=== PATIENT | female | born 1945 | race Caucasian/White ===

== ENCOUNTER → 2023-05-25 07:38 | Outpatient (REF) | payer MEDICARE, BC, SELFPAY | LOC: RAD 07:38 | PROVIDERS: ATTENDING PHYSICIAN Student in an Organized Health Care Education/Training Program | DX: Z87.891 Personal history of nicotine dependence (principal) | CPT/HCPCS: 71271 ==

== ENCOUNTER → 2023-06-12 08:33 | Outpatient (REF) | payer MEDICARE, BC, SELFPAY ==
[2023-06-12 09:35] LABS: % Basophils 1.3 % (0-2); % Eosinophils 1.6 % (0-6); % Immature Granulocytes 0.3 % (0-0.5); % Lymphocytes 41.5 % (20.5-51.1); % Monocytes 11.2 % (1.7-9.3); % Neutrophils 44.1 % (42.2-75.2); Absolute Basophils 0.1 10^3/uL (0-0.2); Absolute Eosinophils 0.1 10^3/uL (0-0.7); Absolute Lymphocytes 3.3 10^3/uL (1.2-3.4); Absolute Monocytes 0.9 10^3/uL (0.1-0.6); Absolute Neutrophils 3.5 10^3/uL (1.4-6.5); Hematocrit 46.5 % (37.0-47.0); Hemoglobin 15.8 g/dL (12.0-16.0); Mean Corpuscular Hgb 29.2 pg (27.0-31.0); Mean Platelet Volume 10.6 fL (7.4-10.4); Nucleated Red Blood Cells % 0 %; Platelet Count 241 10^3/uL (130-400); Red Blood Cell Count 5.41 10^6/uL (4.20-5.40); Red Cell Dist. Width 13.7 % (11.5-14.5); White Blood Cell Count 7.9 10^3/uL (4.8-10.8)
[2023-06-12 09:58] LABS: Urine Albumin Trace (Neg - Trace); Urine Bilirubin Negative (Negative); Urine Character Clear (Clear); Urine Color Yellow; Urine Glucose Negative (Negative); Urine Ketone Negative (Negative); Urine Leukocyte Trace (Negative); Urine Nitrite Negative (Negative); Urine Occult Blood Trace (Negative); Urine Specific Gravity 1.015 (<1.030); Urine Urobilinogen Negative (Neg - 1+)
[2023-06-12 10:00] LABS: ALT (SGPT) 23 U/L (0-35); AST (SGOT) 26 U/L (14-36); Albumin 4.4 g/dl (3.5-5.0); Alkaline Phosphatase 71 U/L (38-126); Blood Urea Nitrogen 18 mg/dl (7-17); Calcium 9.3 mg/dl (8.4-10.2); Carbon Dioxide 25 mmol/L (22-30); Chloride 106 mmol/L (98-107); Glucose 101 mg/dl (70-99); HDL Cholesterol 58 mg/dl; LDL Cholesterol, Calculated 61 mg/dl; Potassium 4.3 mmol/L (3.5-5.1); Sodium 141 mmol/L (135-145); Total Bilirubin 0.6 mg/dl (0.2-1.3); Total Cholesterol 150 mg/dl (50-199); Total Protein 6.9 g/dl (6.3-8.2); Triglyceride 156 mg/dl (10-149); Very Low Density Lipoprotein 31 mg/dl (0-30); eGFR > 60.00
[2023-06-12 10:43] LABS: Vitamin D, 25-OH*** 77.1 ng/mL (30-80)
[2023-06-12 11:28] LABS: Glycohemoglobin (HgbA1c) 5.9 % (4.0-5.6)
[2023-06-12 11:46] LABS: Urine Amorphous Seen; Urine Mucus Few
[2023-06-12 11:47] LABS: Urine Red Blood Cell 0-2 /HPF (0-2); Urine White Cell 0-2 /HPF (0-5)
[2023-06-12 11:48] LABS: Urine Bacteria Few (Negative)
== END ==
LOC: REG 08:33
PROVIDERS: ATTENDING PHYSICIAN Student in an Organized Health Care Education/Training Program
DX: Z00.00 Encounter for general adult medical examination without abnormal findings (principal); M81.0 Age-related osteoporosis without current pathological fracture; I70.90 Unspecified atherosclerosis; E66.3 Overweight; Z79.899 Other long term (current) drug therapy
CPT/HCPCS: 36415; 80053; 80061; 81003; 81015; 82306; 83036; 84443; 85025

== ENCOUNTER → 2023-06-19 18:48 | Outpatient (REF) | payer MEDICARE, BC, SELFPAY ==
[2023-06-20 07:42] LABS: Urine Albumin Negative (Neg - Trace); Urine Bilirubin Negative (Negative); Urine Character Very Cloudy (Clear); Urine Color Yellow; Urine Glucose Negative (Negative); Urine Ketone Negative (Negative); Urine Leukocyte Trace (Negative); Urine Nitrite Negative (Negative); Urine Occult Blood Negative (Negative); Urine Urobilinogen Negative (Neg - 1+)
[2023-06-20 07:58] LABS: Urine Amorphous Seen; Urine Bacteria Few (Negative); Urine Red Blood Cell None Seen /HPF (0-2); Urine White Cell 0-2 /HPF (0-5)
== END ==
LOC: CLAB 18:48
PROVIDERS: ATTENDING PHYSICIAN Student in an Organized Health Care Education/Training Program
DX: R30.0 Dysuria (principal)
CPT/HCPCS: 81003; 81015; 87086

== ENCOUNTER → 2024-06-10 08:47 | Outpatient (REF) | payer MEDICARE, BC, SELFPAY ==
[2024-06-10 09:45] LABS: % Basophils 1.3 % (0-2); % Eosinophils 1.7 % (0-6); % Immature Granulocytes 0.7 % (0-0.5); % Lymphocytes 35.2 % (20.5-51.1); % Monocytes 10.6 % (1.7-9.3); % Neutrophils 50.5 % (42.2-75.2); Absolute Basophils 0.1 10^3/uL (0-0.2); Absolute Eosinophils 0.1 10^3/uL (0-0.7); Absolute Lymphocytes 2.1 10^3/uL (1.2-3.4); Absolute Monocytes 0.6 10^3/uL (0.1-0.6); Absolute Neutrophils 3.1 10^3/uL (1.4-6.5); Hematocrit 44.9 % (37.0-47.0); Hemoglobin 15.3 g/dL (12.0-16.0); Mean Corp Hgb Conc. 34.1 g/dL (33.0-37.0); Mean Corpuscular Hgb 29.7 pg (27.0-31.0); Mean Corpuscular Volume 87.2 fL (81.0-99.0); Mean Platelet Volume 10.3 fL (7.4-10.4); Nucleated Red Blood Cells % 0 %; Platelet Count 190 10^3/uL (130-400); Red Blood Cell Count 5.15 10^6/uL (4.20-5.40); Red Cell Dist. Width 13.5 % (11.5-14.5)
[2024-06-10 10:26] LABS: Urine Albumin 1+ (Neg - Trace); Urine Bilirubin Negative (Negative); Urine Character Clear (Clear); Urine Color Yellow; Urine Glucose Negative (Negative); Urine Ketone Negative (Negative); Urine Leukocyte Negative (Negative); Urine Nitrite Negative (Negative); Urine Occult Blood 1+ (Negative); Urine Specific Gravity 1.025 (<1.030); Urine Urobilinogen Negative (Neg - 1+)
[2024-06-10 10:39] LABS: Urine Bacteria Few (Negative); Urine Red Blood Cell 0-2 /HPF (0-2); Urine Squamous Cell 0-2 /LPF (Few); Urine White Cell 0-2 /HPF (0-5)
[2024-06-10 10:50] LABS: Vitamin D, 25-OH*** 41.1 ng/mL (30-80)
[2024-06-10 11:03] LABS: TSH Reflex To Free T4 0.26 uIU/ml (0.47-4.68)
[2024-06-10 11:16] LABS: Glycohemoglobin (HgbA1c) 5.7 % (4.0-5.6)
[2024-06-10 11:33] LABS: Free T4 1.09 ng/dl (0.78-2.19)
[2024-06-10 11:38] LABS: ALT (SGPT) 29 U/L (0-35); AST (SGOT) 28 U/L (14-36); Albumin 4.7 g/dl (3.5-5.0); Alkaline Phosphatase 69 U/L (38-126); Blood Urea Nitrogen 22 mg/dl (7-17); Calcium 9.4 mg/dl (8.4-10.2); Carbon Dioxide 26 mmol/L (22-30); Chloride 108 mmol/L (98-107); Glucose 93 mg/dl (70-99); HDL Cholesterol 57 mg/dl; LDL Cholesterol, Calculated 86 mg/dl; Potassium 4.9 mmol/L (3.5-5.1); Sodium 142 mmol/L (135-145); Total Bilirubin 0.8 mg/dl (0.2-1.3); Total Cholesterol 170 mg/dl (50-199); Triglyceride 136 mg/dl (10-149); Very Low Density Lipoprotein 27 mg/dl (0-30); eGFR > 60.00
== END ==
LOC: REG 08:47
PROVIDERS: ATTENDING PHYSICIAN Nurse Practitioner Family
DX: E55.9 Vitamin D deficiency, unspecified (principal); Z13.220 Encounter for screening for lipoid disorders; Z13.0 Encounter for screening for diseases of the blood and blood-forming organs and certain disorders involving the immune mechanism; R73.03 Prediabetes; Z13.89 Encounter for screening for other disorder; Z79.899 Other long term (current) drug therapy; H53.2 Diplopia
CPT/HCPCS: 36415; 80053; 80061; 81003; 81015; 82306; 83036; 84439; 84443; 85025

== ENCOUNTER 2024-10-06 04:11 | Inpatient (IN) | payer MEDICARE, BC, SELFPAY ==
[2024-10-05 21:30] VITALS: BP 122/98
[2024-10-05 22:01] LABS: Hematocrit 49.7 % (37.0-47.0); Hemoglobin 17.0 g/dL (12.0-16.0); Mean Corp Hgb Conc. 34.2 g/dL (33.0-37.0); Mean Corpuscular Volume 86.7 fL (81.0-99.0); Nucleated Red Blood Cells % 0 %; Platelet Count 168 10^3/uL (130-400); Red Cell Dist. Width 13.5 % (11.5-14.5)
[2024-10-05 22:20] LABS: ALT (SGPT) 33 U/L (0-35); AST (SGOT) 38 U/L (14-36); Albumin 4.4 g/dl (3.5-5.0); Alkaline Phosphatase 65 U/L (38-126); Blood Urea Nitrogen 19 mg/dl (7-17); Calcium 9.0 mg/dl (8.4-10.2); Carbon Dioxide 20 mmol/L (22-30); Chloride 103 mmol/L (98-107); Glucose 195 mg/dl (70-99); Lipase 178 U/L (23-300); Potassium 4.0 mmol/L (3.5-5.1); Sodium 133 mmol/L (135-145); Total Protein 7.0 g/dl (6.3-8.2); eGFR 52.08
[2024-10-05 22:25] LABS: COVID-19 Antigen Negative (Negative)
[2024-10-06] VITALS (17 sets, daily range): BP systolic 96–136; BP diastolic 50–101; PULSE 88–118; BMI 30.9; BMI 31.5
--- NOTE | 2024-10-06 00:21 | EDRN ---
Pt has not eaten for two days which is unusual for her. Temp today was 101.9 which scared pt. Pt with body aches. Pt has been sleeping for two days. Dry heaves. Occasional nausea followed by dry heave then nausea stops. Pt with intermittent
discomfort L chest x 2 days, is in afib intermittently. Pt has had chills. No sob, abd pain, cough, urinary symptoms. Pt developed diarrhea tonight. No ill contacts. Pt was camping last weekend and says she was bit by a lot of mosquitos. Pt
took tylenol 1000mg at 1700
[2024-10-06] MEDS: NSS 1000 IV ×4 (00:35→16:27)
[2024-10-06 01:12] LABS: Troponin I 0.025 ng/ml
[2024-10-06 02:04] LABS: Urine Character Slightly Cloudy (Clear)
[2024-10-06] MEDS: NSS 500 IV (02:41)
[2024-10-06] MEDS: ZOSYN 50 IV (02:41)
[2024-10-06 02:52] LABS: Urine White Cell None Seen /HPF (0-5)
--- NOTE | 2024-10-06 03:06 | ED.GENMED ---
History of Present Illness
General
Chief Complaint: Abdominal Symptoms
Source: patient
Exam Limitations: none
Time Seen by Provider: 10/05/24 23:48
Nursing documentation reviewed up to this point in time: agreed with
History of Present Illness
History of Present Illness:
78-year-old female with history as noted presents to the ER for febrile illness. Patient reports that she has been feeling unwell for the past 48 hours. She states she has had a fever with a Tmax of 102 �F. She says that she has had decreased
appetite. She says that she has had nausea with vomiting/dry heaving. She had some loose stools today nonbloody. She denies any significant abdominal pain. She denies any cough or shortness of breath. Denies chest pain. She says that when she
has a high fever she does have a mild headache but no headache at present. She denies any dysuria, hematuria, change in frequency. She denies any URI symptoms. Denies any other acute complaints.
Past History
Past History
ED Past Medical History: Arrthythmia and Hypercholesterolemia
ED Past Surgical History: Gynecological
Social History
Tobacco: Non-smoker
Alcohol: None
Review of Systems
Review of Systems
All Other Systems: ROS reviewed and negative except as documented in HPI and ROS
Constitutional: Reports fever, fatigue and chills
EENT: Denies sore throat or runny nose
Respiratory: Denies cough or trouble breathing
Cardiac: Denies chest pain or palpitations
ABD/GI: Reports nausea, vomiting and diarrhea; Denies abdominal pain or bloody stools
: Denies dysuria, frequency or flank pain
Musculoskeletal: Denies neck pain or back pain
Neurological: Reports headache; Denies dizzy
Phy Exam
Physical Exam
Physical Exam:
General: Awake, alert, oriented x3; no acute distress
Head: Normocephalic, atraumatic
Eyes: Conjunctiva normal, sclera anicteric
Throat: Airway intact, handling secretions
Neck: Trachea midline, supple without meningismus
Lungs: Clear to auscultation bilaterally, no wheezing, rales, rhonchi
Heart: Tachycardia with irregularly irregular rhythm, no murmurs, gallops, or rubs
Abd: Soft, non distended, tender to palpation in the epigastrium
Back: No CVA tenderness
Neuro: No gross deficits
Skin: no rash
Extremities: Warm and well-perfused
Scores
Heart Failure Risk
Heart Failure Risk Score: Not Applicable
Heart Score for Chest Pain Patients
STEMI patient?: Not applicable
Withdrawal Assessment of Alcohol
Withdrawal Assessment Completed?: Not applicable
Sepsis
Sepsis Screening
Sepsis Assessment: Sepsis
Sepsis Screening: Lactate >2mmol/L and Hypotension
Sepsis Screen
Sepsis Screen: Sepsis
Date: 10/06/24
Time: 02:37
Course
Orders/Labs/Results
Orders:
Orders
10/05/24 21:47
COVID-19 Antigen Urgent
Source: Nasal Swab
Complete Blood Count/With Diff Urgent
Comprehensive Metabolic Panel Urgent
Lactic Acid Q4H
Comment: ON ICE, CANCEL 2ND ORDER IF FIRST LACTIC ACID LEVEL <2
Lipase Urgent
Influenza A+B Rapid Molecular Urgent
LISE Source: Nasal Swab
Specimen Description:
10/05/24 23:49
0.9% Sodium Chloride 1000 ml [Nss] 1,000 ml IV BOLUS
10/06/24 00:04
CT Abd/pelvis W Iv Cont Urgent
Reason For Exam: abd pain, N/V/D
10/06/24 00:34
Troponin I Urgent
10/06/24 00:45
EKG [Electrocardiogram (*1)] Urgent
Reason for Study: Chest Pain
EKG- Treatment ONCE
10/06/24 01:51
Lactic Acid Q4H
Comment: ON ICE, CANCEL 2ND ORDER IF FIRST LACTIC ACID LEVEL <2
10/06/24 01:55
Urinalysis Reflex To Culture Urgent
Date Specimen was Collected: 10/06/24
Time Specimen was Collected: 01:53
Urine Microscopic Reflex Cult Urgent
10/06/24 02:32
0.9% Sodium Chloride 1000 ml [Nss] 1,000 ml IV BOLUS
10/06/24 02:36
US Abdomen Complete/Upper Urgent
Comment:
Reason For Exam: upper abd tenderness, N/V
10/06/24 02:37
0.9% Sodium Chloride 500 ml [Nss] 500 ml IV BOLUS
Piperacillin/Tazo 3.375 Gram [Zosyn] 3.375 gram in 50 ml IV NOW
10/06/24 02:45
Blood Culture Q30M
LISE Source: Blood/Venous
Specimen Description:
10/06/24 03:15
Blood Culture Q30M
LISE Source: Blood/Venous
Specimen Description:
Abnormal Lab Results
10/05/24 10/06/24 10/06/24
21:47 01:51 01:55
RBC 5.73 H 10^6/uL
(4.20-5.40)
Hgb 17.0 H g/dL
(12.0-16.0)
Hct 49.7 H %
(37.0-47.0)
MPV 10.6 H fL
(7.4-10.4)
Absolute Lymphs (auto) 0.5 L 10^3/uL
(1.2-3.4)
Immature Gran % 0.6 H %
(0-0.5)
Neutrophils % 83.9 H %
(42.2-75.2)
Lymphocytes % 9.3 L %
(20.5-51.1)
Sodium 133 L mmol/L
(135-145)
Carbon Dioxide 20 L mmol/L
(22-30)
BUN 19 H mg/dl
(7-17)
Creatinine 1.1 H mg/dL
(0.6-1.0)
Glucose 195 H mg/dl
(70-99)
Lactic Acid 3.2 H mmol/L 2.5 H mmol/L
(0.7-2.0) (0.7-2.0)
AST 38 H U/L
(14-36)
Ur Occult Blood Reflex 3+ A
(Negative)
Urine RBC 7-10 A /HPF
(0-2)
Urine Bacteria (Reflex) Few A
(Negative)
Urine Albumin (Reflex) 2+ A
(Neg - Trace)
10/05/24 21:47
10/05/24 21:47
Vital Signs
Initial and Last Documented VS:
Initial Vital Signs
Temp Pulse Resp BP Pulse Ox
36.8 C 79 20 122/98 96
10/05/24 21:30 10/05/24 21:30 10/05/24 21:30 10/05/24 21:30 10/05/24 21:30
Last Documented Vital Signs
Temp Pulse Resp BP Pulse Ox
36.8 C 111 16 100/60 96
10/06/24 00:39 10/06/24 03:00 10/06/24 02:00 10/06/24 03:00 10/05/24 21:30
MDM/Problems Addressed
Differential Diagnosis Includes:
Viral syndrome, UTI, enteritis/gastroenteritis, cholecystitis, pancreatitis
MDM/Problems Addressed:
78-year-old female presents for evaluation of febrile illness associate with nausea/vomitings, some loose stools today. Vitals were significant for tachycardia and mild hypotension. Physical exam as above notable for upper abdominal tenderness.
Labs were sent off including a CBC which showed no leukocytosis but predominant neutrophils. CMP shows mild MINESH with a creatinine of 1.5. Marginal nongap metabolic acidosis from GI losses. Initial lactate elevated 3.2. Blood cultures sent off.
Bilirubin normal, AST marginally elevated but ALT normal. Lipase normal. Troponin negative. Urinalysis no infection appears contaminated. CT of the abdomen pelvis did show distended gallbladder but no other acute abnormalities. Viral swabs were
negative. Given her tenderness and nausea/vomiting cholecystitis is a consideration and with elevated lactate would err towards covering with antibiotics. Will send for upper abdominal ultrasound to better evaluate gallbladder. Will continue with
fluid resuscitation�30 cc/kg fluids ordered. She is tachycardic and EKG notes that she is in A-fib with RVR. I suspect that tachycardia is mostly being driven by hypovolemia and she does have mild hypotension�will hold off on rate control meds
pending better fluid resuscitation to avoid exacerbating hypotension. Will admit to the hospitalist for continued management. Discussed case with hospitalist.
Chronic conditions affecting care:
A-fib with RVR
Acute Exacerbation and/or Progression of Chronic Illness:
Acute exacerbation of chronic A-fib managed as above
*Radiology
Radiology exam reviewed: radiology read reviewed
*Pulse Oximetry
SaO2: 96
Oxygen Mode of Delivery: Room air
Patient hypoxic: no (96%)
*EKG
Interpreted by ED Provider?: Yes
Heart Rate: 116
Rate: tachycardiac
Rhythm: a-fib
[place]: normal axis
Interval: normal interval
QRS Pattern: normal QRS
Ischemia: non-specific ST changes
*Critical Care Note
Total Time (30-74mins, 75-104mins- exclusive of procedures): Not Applicable
Data Reviewed
Source: patient and records
Prescriptions/Medications Considered But Not Given:
Considered giving metoprolol/diltiazem
Patient Management
Discussion with other providers: Hospitalist (Discussed with hospitalist)
Escalation/DeEscalation of care consider admission/obs:
Admission indicated
ED Attending Note
-
Portions of this chart may have been created with voice recognition software.� Occasional wrong word or��sound alike� substitutions may have occurred due to the inherent limitations of voice recognition software.
Discharge Plan
Departure
Patient Disposition: Admit
Date of Disposition: 10/06/24
Time of Disposition: 03:04
Admit to doctor: Simba
Presentation/result/management discussed w/ accepting MD/DO: Hospitalist
Discharge Problem:
Fever, Hypovolemia, Atrial fibrillation with RVR
Prescriptions:
No Action
metoprolol succinate 25 mg tablet extended release 24 hr
25 mg PO HS
metoprolol succinate 25 mg tablet extended release 24 hr
12.5 mg PO DAILY
Hair,Skin and Nails Tablet
1 tab PO DAILY
coenzyme Q10 [Co Q-10] 100 mg Capsule
100 mg PO HS
rosuvastatin 10 mg tablet
10 mg PO HS
cinnamon bark [Cinnamon] 500 mg Capsule
1,000 mg PO BID
Xarelto 20 mg tablet
20 mg PO HS
PreserVision AREDS-2 250-90-40-1 mg Capsule
1 tab PO BID
Joint Health 40-10-5-3.3 mg Tablet
1 tab PO DAILY
Probiotic
1 tab PO DAILY
omeprazole 20 mg capsule,delayed release(DR/EC)
20 mg PO HS
ibandronate 150 mg tablet
150 mg PO MONTHLY
Neuriva Original 100-100 mg Capsule
1 cap PO DAILY
Referrals:
Mercedez Olson CRNP [Family Provider, Family Practice]
Interventions
Interventions:
*Risk Screen - Suicide Last Done: 10/05/24 21:30
*General Assessment Last Done: 10/05/24 21:30
*Neglect/Abuse Screening Last Done: 10/05/24 21:30
*ED- Fall Risk Assessment Last Done: 10/06/24 00:39
SF-Idlrej-Vryykimeqi Assessment Last Done: 10/06/24 00:46
Discharge Date and Time
Print Language: YI
--- NOTE | 2024-10-06 03:34 | HPS.HSE ---
Family Physician
-
Family Physician: HAWA Francois
Chief Complaint
-
Fever
History of Present Illness
This is a 78-year-old female with past medical history significant for proximal atrial fibrillation on anticoagulant with Xarelto, hypertension, hyperlipidemia presenting to the emergency department with 2 days of feeling unwell and a febrile
episode today.
She reported that she started feeling unwell about 48 hours ago. Patient stated that her symptoms initially started with rhinorrhea and nasal congestion. She had a headache. She then developed fatigue chills. The following day she slept most of
the day until she had a temp of over 101 at home. She had more chills. She had no appetite and had not had any significant p.o. in the last 48 hours. She then reported that she got up and then had profuse amount of watery diarrhea. She denied
having any abdominal pain. She denies any vomiting. She had no nausea. She denies having any cough shortness of breath pleuritic chest pain or otherwise. She denies any sore throat or sinus congestion. She denies any headache. She denies any
urinary symptoms such as flank pain dysuria frequency or urgency. She denies any rash denies any recent travels or sick contacts.
She took Tylenol before coming to the emergency department.
Send on arrival in the emergency department patient was afebrile with a temp of 98.3, blood pressure was 96/50 and she was tachycardic to 110s. She was satting 96% on room air.
She had hemoglobin of 17, normal WBCs and normal platelets. Lactic acid was elevated at 3.2. Electrolytes were normal except for sodium of 133. BUN/creatinine were stable at 19 and 1.1. LFTs were normal, lipase normal. Urine urinalysis was
unremarkable. COVID and flu test were negative.
She had a CT of the abdomen pelvis with capsular distention but without any other acute findings and specifically no diverticulitis, biliary abnormalities. AAA ultrasound of the abdomen is negative with normal gallbladder, no sludge or gallstones
and negative Larkin sign's without any biliary ductal dilation.
Medical History
Past Medical History
Past Medical History: Reports Other
Additional Past Medical History:
AAA
Hypertension
Paroxysmal Atrial Fibrillation
Dyslipidemia
Osteopenia
Past Surgical History: Reports Other
Additional Past Surgical History:
Left Forearm ORIF
T&A
Appendectomy
BSO
Sebaceous Cyst Excision
Social History
Tobacco: Former Smoker (Quit smoking in 2014. Approx 50 pack years total use.)
Alcohol: None
Drug: None
Family History
Family History: Other (Mother: Longevity, A-Fib Maternal Aunt: DM)
Allergies / Home Medications
Allergies reflects when Allergies were last updated in [facility].
Home Medications with original date entered in [facility]
Allergy/Medication List:
Allergies
Allergy/AdvReac Type Severity Reaction Status Date / Time
codeine Allergy Nausea / Verified 12/27/22 15:32
Vomiting
meperidine [From Demerol] Allergy Nausea / Verified 12/27/22 15:32
Vomiting
Home Medications
Neureua 1 tab PO DAILY 12/27/22
Probiotic 1 tab PO DAILY 12/27/22
cartilage 40 mg-collagen II 10 mg-boron 5 mg-hyaluronate 3.3 mg tablet (A [place] [place]) 1 tab PO DAILY 12/27/22
cinnamon bark 500 mg capsule (Cinnamon) 1,000 mg PO BID 12/27/22
coenzyme Q10 100 mg capsule (Co Q-10) 100 mg PO HS 12/27/22
ibandronate 150 mg tablet 150 mg PO MONTHLY 12/27/22
metoprolol succinate 25 mg tablet,extended release 24 hr 12.5 mg PO QPM PRN if pulse above 56 12/27/22
metoprolol succinate 25 mg tablet,extended release 24 hr 25 mg PO DAILY 12/27/22
multivitamin with minerals (Hair,Skin and Nails tablet) 1 tab PO BID 12/27/22
omeprazole 20 mg capsule,delayed release 20 mg PO HS 12/27/22
rivaroxaban 20 mg tablet (Xarelto) 20 mg PO HS 12/27/22
rosuvastatin 10 mg tablet 10 mg PO HS 12/27/22
vit C 250 mg-vit E 90 mg-zinc 40 mg-copper 1 [id number] capsule (PreserVision AREDS-2) 1 tab PO BID 12/27/22
Review of Systems
-
History Source: Patient
A 12 point ROS was completed and negative except as noted: Yes
Constitutional: Reports Fever; Denies Chills
EENT: Denies Sore Throat
Respiratory: Denies Cough or Trouble Breathing
Cardiac: Denies Chest Pain or Palpitations
Abdomen/GI: Reports Diarrhea; Denies Abdominal Pain, Nausea or Vomiting
: Denies Dysuria or Flank Pain
Musculoskeletal: Denies Joint Pain
Skin: Denies Rash
Neurological: Denies Dizzy, Headache, Weakness or Numbness
Psych: Denies Depression or Anxiety
Physical Exam
Vital Signs
Vital Signs
Temp Pulse Resp BP Pulse Ox
98.3 F 111 16 100/60 96
10/06/24 00:39 10/06/24 03:00 10/06/24 02:00 10/06/24 03:00 10/06/24 03:14
Physical Exam
General: Other (77y F in no acute distress)
HEENT: Moist mucous membranes and Other (Patient not capable of moving L orb laterally beyond midline.)
Respiratory: Clear; No Wheezes, Rales or Rhonchi
Cardiac: S1/S2 and Regular Rhythm; No Murmur
GI: Soft, Non Tender, Non Distended and Normal Bowel Sounds
Musculoskeletal: No Clubbing, No Cyanosis and No Edema
Neuro: AO x 3 and Nonfocal/grossly intact
Psych: Calm
Laboratory Results
-
10/05/24 21:47
10/05/24 21:47
Laboratory Results
Lactic Acid 2.5 mmol/L (0.7-2.0) H 10/06/24 01:51
Total Bilirubin 0.8 mg/dl (0.2-1.3) 10/05/24 21:47
AST 38 U/L (14-36) H 10/05/24 21:47
ALT 33 U/L (0-35) 10/05/24 21:47
Alkaline Phosphatase 65 U/L (38-126) 10/05/24 21:47
Troponin I 0.025 ng/ml 10/06/24 00:34
Lipase 178 U/L (23-300) 10/05/24 21:47
Data Reviewed
-
CT Scan: Report Reviewed by me
Ultrasound: Report Reviewed by me
Lab Data: Labs Reviewed by me
Old Records: Reviewed
Impression/Plan
-
IMPRESSION:
78-year-old female with proximal atrial fibrillation coming into the emergency department with febrile episode and some sinus symptoms that started about 48 hours ago. She had no other respiratory symptoms. She has no rash. She has no focal
localizing symptoms. She did have 1 episode of diarrhea prior to coming into the emergency department but has not had further diarrhea since. Tmax of 102 at home. Afebrile here and without leukocytosis. Suspect this is a upper respiratory
infection or possibly sinusitis or viral URI accompanied by fever and tachycardia. Patient does have elevated lactic acid which improved with initial crystalloid resuscitation in the ED. She had imaging with CT of the abdomen pelvis which was
negative for diverticulitis and the CT and ultrasound were negative for acute cholecystitis, appendicitis or any other peritonitis. No focal abnormalities on the examination. COVID and flu test are negative.
PLAN:
Fever -source not entirely clear was symptoms consistent with sinusitis, cannot rule out developing viral gastroenteritis. She has tachycardia and elevated lactic acid meeting criteria for sepsis.
-Admit to telemetry
-Blood cultures
-Will continue with IV antibiotics (Unasyn)
-Saline nasal spray
-Continue IV fluids overnight
-Advance diet as tolerated
Atrial fibrillation -RVR at 116 likely secondary to fever and hypovolemia
-IV fluids as above
-Continue home Xarelto
-Restart metoprolol in the a.m. with hold parameters
DVT prophylaxis�on Xarelto
CODE STATUS�full code
[2024-10-06 06:36] LABS: Hematocrit 44.3 % (37.0-47.0); Hemoglobin 15.0 g/dL (12.0-16.0); Mean Corp Hgb Conc. 33.9 g/dL (33.0-37.0); Mean Corpuscular Volume 86.5 fL (81.0-99.0); Platelet Count 123 10^3/uL (130-400); Red Cell Dist. Width 13.7 % (11.5-14.5)
[2024-10-06 06:37] LABS: Blood Urea Nitrogen 19 mg/dl (7-17); Calcium 7.8 mg/dl (8.4-10.2); Carbon Dioxide 23 mmol/L (22-30); Chloride 107 mmol/L (98-107); Estimated Creatinine Clearance 53 ml/min; Glucose 136 mg/dl (70-99); Potassium 4.1 mmol/L (3.5-5.1); Sodium 135 mmol/L (135-145); eGFR > 60.00
[2024-10-06] MEDS: TYLENOL 650 MG PO ×3 (08:14→20:11)
[2024-10-06] MEDS: TOPROL XL 12.5 MG PO (09:22)
[2024-10-06] MEDS: UNASYN IV ×2 (09:22→14:01)
--- NOTE | 2024-10-06 10:00 | W.PN.UPDATE ---
Update Note
Progress Note Update
Patient seen and examined after postmidnight admission. Currently without new complaints. Denies chest pain, shortness of breath, abdominal pain. Vital signs stable. No acute distress, awake alert and oriented. Tachycardic, irregularly
irregular rhythm, normal S1-S2. Clear to auscultation bilaterally. Positive bowel sounds, soft, nontender, nondistended. Since admission, Abd U/S read as unremarkable abdominal ultrasound. CT A/P read pending. Continue IV ampicillin for sepsis due
to sinusitis. Consult infectious disease. Continue IV fluids.
--- NOTE | 2024-10-06 10:45 | CM ---
CM met with pt bedside
Pt resides with her son and his fiance in a [place] with [address]
Pt is indep with her ADLs, drives+
Denies use of DMEs
Pt has Rx coverage through her supplement policy, [employer]
PCP- Mercedez Olson
Rx- [facility]
Son/Ori is financial POA
Granddtr/Hemal is medical POA- admissions notified to add as secondary contact ([phone])
Discharge Disposition- anticipate home no needs
--- NOTE | 2024-10-06 15:05 | CON.ID ---
Consultation
-
Date/Time Consultation Requested: 10/06/2024 0919
Date/Time Consultation Performed: 10/06/2024 1500
Requesting Provider: Dr. Lozano
Performing Provider: Dr. Smiley
Reason for Consultation: Fever
Chief Complaint / Past History
History of Present Illness
Sara Serrano is a 78-year-old female being evaluated at the request of Dr. Lozano in regards to fever. History is obtained from chart review, along with patient interview.
The patient reports that she was well until approximately 2 days ago when she woke up and after breakfast developed chills. She reports that over the next 48 hours she remained in bed secondary to feeling quite ill. She reports generalized lack of
appetite. She also reports some headache, but no significant neck or back discomfort. She reports no sick contacts. She lives with her son and his fianc�e. She has 2 cats which are indoor cats and do not go outside.
Of note, she reports that she recently returned from a camping trip in the [facility] ([employer] While there last weekend, she stayed in a tent 2 nights. She recalls no ticks, but does recall getting at least several mosquito
bites.
Past History
Additional Past Medical History:
Atrial fibrillation
HLD
AAA
HTN
Osteopenia
Additional Past Surgical History:
Bilateral salpingo-oophorectomy
Wrist surgery
Allergy History:
codeine Allergy (Verified 10/06/24 00:17)
Nausea / Vomiting
meperidine (From Demerol) Allergy (Verified 10/06/24 00:17)
Nausea / Vomiting
Medications Reviewed: Yes
Current Antibiotics:
Unasyn
Social History
Tobacco: Former Smoker (50 years)
Alcohol: Occasional
Drug: Marijuana
Personal: Single
Living: With Family
Employment: Retired
Family History
Family History: Not Pertinent
Review of Systems
Vital Signs
Temp Pulse Resp BP Pulse Ox
98.5 F 94 18 132/67 96
10/06/24 14:00 10/06/24 14:00 10/06/24 14:00 10/06/24 14:00 10/06/24 14:04
Physical Exam
Physical Exam
Constitutional: No Acute Distress, Comfortable and Non-toxic
Eyes: No Conjunctival Hemorrhage and Sclera Anicteric
Oral: No Thrush and No Ulcers
Cardiovascular: S1/S2; Negative S3/S4
Pulmonary: Clear; Negative Wheezes, Rales or Rhonchi
Gastrointestinal: Soft, Non Tender, Non Distended and Normal Bowel Sounds
Extremities: Negative Edema, Cyanosis or Erythema
Skin: Warm and Dry; Negative Rash or Jaundice
Neurological: Awake, Alert and Oriented
Psychological: Calm
.
Lab / Diagnostic Study Results
10/06/24 05:50
10/06/24 05:50
Abs Immat Gran (auto) 0.0 10^3/uL (0-0.05) 10/05/24 21:47
Absolute Neuts (auto) 4.5 10^3/uL (1.4-6.5) 10/05/24 21:47
Absolute Lymphs (auto) 0.5 10^3/uL (1.2-3.4) L 10/05/24 21:47
Absolute Monos (auto) 0.3 10^3/uL (0.1-0.6) 10/05/24 21:47
Absolute Basos (auto) 0.0 10^3/uL (0-0.2) 10/05/24 21:47
Immature Gran % 0.6 % (0-0.5) H 10/05/24 21:47
Neutrophils % 83.9 % (42.2-75.2) H 10/05/24 21:47
Lymphocytes % 9.3 % (20.5-51.1) L 10/05/24 21:47
Monocytes % 5.6 % (1.7-9.3) 10/05/24 21:47
Eosinophils % 0.0 % (0-6) 10/05/24 21:47
Basophils % 0.6 % (0-2) 10/05/24 21:47
Lactic Acid 2.2 mmol/L (0.7-2.0) H 10/06/24 05:50
Ur Squamous Epith Cells 3-5 /LPF (Few) 10/06/24 01:55
Microbiology Results
Micro:
10/06/24 03:13 Blood Culture - Pending
Blood/Venous
10/06/24 03:11 Blood Culture - Pending
Blood/Venous
10/05/24 21:47 Influenza Types A & B (JANINE) - Final
Nasal Swab Negative for Influenza A & B, NAAT
Negative results must be combined with clinical observations
and patient history.
Nucleic Acid Amplification test (NAAT)performed on the
[employer] NOW platform.
Imaging:
10/06/2024 CT abdomen/pelvis with IV contrast: no evidence of intestinal obstruction, nephrolithiasis, hydronephrosis, cholecystitis or abscess formation. There is a AAA measuring 4.5 cm. Ulcerated plaque within the aneurysm. No evidence of
aneurysmal rupture or leakage. Please see full dictation for additional detail.
Assessment / Plan
Fever and malaise
Recent camping trip
Leukopenia
Thrombocytopenia
Lactic acidosis
Atrial fibrillation
HLD
AAA
HTN
Osteopenia
Recommendations:
Given exposure history, tickborne illness is high in the differential.
Will check Ehrlichia and Anaplasma PCR, along with blood parasite smear.
Discontinue further Unasyn.
Begin doxycycline 100 mg p.o. q.12 hours.
Monitor temperature curve.
Follow white count.
Further recommendations as additional data is returned.
[2024-10-06] MEDS: VIBRAMYCIN 100 MG PO (20:12)
[2024-10-06] MEDS: CRESTOR 10 MG PO (21:49)
[2024-10-06] MEDS: TOPROL XL 25 MG PO (21:49)
[2024-10-06] MEDS: PROTONIX 40 MG PO (21:49)
[2024-10-06] MEDS: XARELTO 20 MG PO (21:50)
[2024-10-07] VITALS (7 sets, daily range): BP systolic 111–141; BP diastolic 62–93; PULSE 84–96; BMI 31.4
[2024-10-07] MEDS: NSS 1000 IV ×3 (00:38→21:21)
--- NOTE | 2024-10-07 02:59 | DOWNTIME ---
There was a [employer] Downtime on 10/07/2024 from 0100 to 10/07/2024 at 0220. Downtime documentation of patient's care, including medication administrations, has been reconciled in the electronic record per guidelines. Refer to the
patient's paper chart under the miscellaneous tab to see printed paper medication records and downtime forms.
[2024-10-07] MEDS: TOPROL XL 12.5 MG PO ×2 (08:18→10:59)
[2024-10-07] MEDS: VIBRAMYCIN 100 MG PO ×2 (08:18→20:10)
--- NOTE | 2024-10-07 08:41 | W.PN.HOSP.TC ---
Today's Communication/Plan
-
see plan
Assessment / Plan
Assessment / Plan
Gen: NAD, AAOx3.
Eyes: EOMI, PERRLA, no scleral icterus.
Neck: supple.
CV: tachy, irreg/irreg, +S1/S2, no m/r/g.
Resp: CTAB, no rales, wheezes, or rhonchi.
Abd: +BS, soft, NT, ND
Skin: No rashes.
Neuro: CN 2-12 intact, non-focal.
Psych: Normal mood and affect.
10/07/24 06:19 Blood/Venous Blood Parasites Smear - Preliminary
10/05/24 21:47 Nasal Swab Influenza Types A & B (JANINE) - Final
Negative for Influenza A & B, NAAT
Negative results must be combined with clinical observations
and patient history.
Nucleic Acid Amplification test (NAAT)performed on the
[employer] ID NOW platform.
CT A/P:
1. No evidence of intestinal obstruction, nephrolithiasis, hydronephrosis, cholecystitis, or abscess formation.
2. Abdominal aortic aneurysm, measuring 4.5 cm in greatest orthogonal dimension. Ulcerated plaque within the aneurysm. No evidence of aneurysm rupture or leakage.
3. 4 mm lung nodule at the right lung base. As per Fleischner Society recommendations, no further CT follow-up is required unless the patient is high risk for lung carcinoma, in which case a follow-up chest CT should be considered in approximately
12 months.
Abd U/S: Unremarkable abdominal ultrasound.
Sepsis:
-recent camping trip, concern for tickborne illness
-ID following
-parasite smear prelim NEG
-Ehrlichia/Anaplasma PCR pending
-cont Doxy
Afib with RVR:
-likely due to sepsis and hypovolemia
-cont IVFs
-cont Xarelto
-increase Toprol XL to 50mg daily, first dose now
Obesity due to excess calories
Leukopenia and thrombocytopenia likely due to acute process
FULL/Xarelto
Anticipated Discharge: 24 - 48 hours
Subjective/Interval History
-
Date of Service: October 07, 2024
c/o nausea
Objective Data
-
Vital Signs:
Vital Signs
Temp Pulse Resp BP Pulse Ox
99.3 F 95 16 138/72 94
10/07/24 07:53 10/07/24 07:53 10/07/24 07:53 10/07/24 08:18 10/07/24 07:53
I&O
10/06/24 10/07/24 10/08/24
06:59 06:59 06:59
Intake Total 0 / 1680
Balance 1680 / 1680
[2024-10-07 09:05] LABS: Hematocrit 38.1 % (37.0-47.0); Hemoglobin 13.1 g/dL (12.0-16.0); Mean Corp Hgb Conc. 34.4 g/dL (33.0-37.0); Mean Corpuscular Volume 84.7 fL (81.0-99.0); Red Cell Dist. Width 13.3 % (11.5-14.5)
[2024-10-07 09:35] LABS: Blood Urea Nitrogen 11 mg/dl (7-17); Calcium 7.6 mg/dl (8.4-10.2); Carbon Dioxide 22 mmol/L (22-30); Chloride 105 mmol/L (98-107); Estimated Creatinine Clearance 80 ml/min; Glucose 131 mg/dl (70-99); Potassium 3.3 mmol/L (3.5-5.1); Sodium 131 mmol/L (135-145); eGFR > 60.00
[2024-10-07 09:46] LABS: Platelet Count 61 10^3/uL (130-400)
[2024-10-07] MEDS: TOPROL XL 25 MG PO (10:58)
--- NOTE | 2024-10-07 14:49 | W.PN.ID1 ---
Date of Service
Date of Service: October 07, 2024
Today's Communication
Doxycycline. Follow white count and platelet count.
Assessment / Plan
Fever and malaise
Recent camping trip
Leukopenia
Thrombocytopenia
Lactic acidosis
Atrial fibrillation
HLD
AAA
HTN
Osteopenia
Recommendations:
Given exposure history, tickborne illness is high in the differential.
Ehrlichia and Anaplasma PCR pending. Blood parasite smear negative
Continue doxycycline 100 mg p.o. q.12 hours.
Monitor temperature curve.
Follow white count.
Further recommendations as additional data is returned.
Chief Complaint
-: Fever
Subjective / Review of Systems
Patient seen and examined. Reports she is feeling improved today. Fevers have abated. Notes increased appetite.
Vital Signs / Physical Exam
Vital Signs
Vital Signs
Temp Pulse Resp BP Pulse Ox
97.8 F 84 17 126/63 94
10/07/24 11:21 10/07/24 11:21 10/07/24 11:21 10/07/24 11:21 10/07/24 11:21
Physical Exam
Constitutional: No Acute Distress, Comfortable and Non-toxic
Eyes: No Conjunctival Hemorrhage and Sclera Anicteric
Cardiovascular: S1/S2; Negative S3/S4
Pulmonary: Non Labored
Gastrointestinal: Soft, Non Tender and Non Distended
Skin: Negative Rash or Jaundice
Neurological: Awake and Alert
Psychological: Calm
Objective Data
Lab Data
Lab Results
10/07/24 08:53
10/07/24 08:53
Estimated Creat Clear 80 ml/min 10/07/24 08:53
Lactic Acid 2.2 mmol/L (0.7-2.0) H 10/06/24 05:50
Total Bilirubin 0.8 mg/dl (0.2-1.3) 10/05/24 21:47
AST 38 U/L (14-36) H 10/05/24 21:47
ALT 33 U/L (0-35) 10/05/24 21:47
Alkaline Phosphatase 65 U/L (38-126) 10/05/24 21:47
Most recent labs reviewed.
Micro Results:
10/07/24 06:19 Blood Parasites Smear - Final
Blood/Venous
10/06/24 03:13 Blood Culture - Pending
Blood/Venous
10/06/24 03:11 Blood Culture - Pending
Blood/Venous
10/05/24 21:47 Influenza Types A & B (JANINE) - Final
Nasal Swab Negative for Influenza A & B, NAAT
Negative results must be combined with clinical observations
and patient history.
Nucleic Acid Amplification test (NAAT)performed on the
[employer] ID NOW platform.
Imaging:
10/06/2024 CT abdomen/pelvis with IV contrast: no evidence of intestinal obstruction, nephrolithiasis, hydronephrosis, cholecystitis or abscess formation. There is a AAA measuring 4.5 cm. Ulcerated plaque within the aneurysm. No evidence of
aneurysmal rupture or leakage. Please see full dictation for additional detail.
[2024-10-07] MEDS: CRESTOR 10 MG PO (21:17)
[2024-10-07] MEDS: PROTONIX 40 MG PO (21:17)
[2024-10-07] MEDS: XARELTO 20 MG PO (21:18)
[2024-10-07] MEDS: TYLENOL 650 MG PO (21:25)
[2024-10-08 03:19] VITALS: BP 142/91
[2024-10-08] MEDS: VIBRAMYCIN 100 MG PO ×2 (07:55→20:06)
[2024-10-08] MEDS: TOPROL XL 50 MG PO (07:55)
[2024-10-08 08:00] VITALS: BP 162/80
[2024-10-08] MEDS: NSS 1000 IV (08:02)
[2024-10-08 08:06] LABS: Hematocrit 37.7 % (37.0-47.0); Hemoglobin 13.2 g/dL (12.0-16.0); Mean Corp Hgb Conc. 35.0 g/dL (33.0-37.0); Mean Corpuscular Volume 84.0 fL (81.0-99.0); Red Cell Dist. Width 13.1 % (11.5-14.5)
[2024-10-08 08:26] LABS: Platelet Count 61 10^3/uL (130-400)
--- NOTE | 2024-10-08 08:31 | W.PN.HOSP.TC ---
Today's Communication/Plan
-
see plan
Assessment / Plan
Assessment / Plan
Gen: NAD, AAOx3.
Eyes: EOMI, PERRLA, no scleral icterus.
Neck: supple.
CV: remains tachy, irreg/irreg, +S1/S2, no m/r/g.
Resp: CTAB anteriorly, no rales, wheezes, or rhonchi.
Abd: remains +BS, soft, NT, ND
Skin: No rashes.
Neuro: CN 2-12 intact, non-focal.
Psych: Normal mood and affect.
10/06/24 03:13 Blood/Venous Blood Culture - Preliminary
No Growth in 48 hours- Final report to follow
10/06/24 03:11 Blood/Venous Blood Culture - Preliminary
No Growth in 48 hours- Final report to follow
10/07/24 06:19 Blood/Venous Blood Parasites Smear - Final
10/05/24 21:47 Nasal Swab Influenza Types A & B (JANINE) - Final
Negative for Influenza A & B, NAAT
Negative results must be combined with clinical observations
and patient history.
Nucleic Acid Amplification test (NAAT)performed on the
[employer] ID NOW platform.
CT A/P:
1. No evidence of intestinal obstruction, nephrolithiasis, hydronephrosis, cholecystitis, or abscess formation.
2. Abdominal aortic aneurysm, measuring 4.5 cm in greatest orthogonal dimension. Ulcerated plaque within the aneurysm. No evidence of aneurysm rupture or leakage.
3. 4 mm lung nodule at the right lung base. As per Fleischner Society recommendations, no further CT follow-up is required unless the patient is high risk for lung carcinoma, in which case a follow-up chest CT should be considered in approximately
12 months.
Abd U/S: Unremarkable abdominal ultrasound.
Sepsis:
-recent camping trip, concern for tickborne illness
-ID following
-parasite smear prelim NEG
-Ehrlichia/Anaplasma PCR pending
-cont Doxy
Afib with RVR:
-initially thought to be due to sepsis and hypovolemia
-s/p IVFs
-cont Xarelto
-Toprol XL increased to 50mg daily
-start Cardizem CD 120mg daily
-check echo
-c/s cards
Other problems:
Hyponatremia, mild
Hypokalemia: 80meq K today
Thrombocytopenia, suspect consumptive, c/s heme
Obesity due to excess calories
Leukopenia and thrombocytopenia likely due to acute process
FULL/Xarelto
Total time spent on today's encounter was 50 minutes which included time spent in counseling the patient/family regarding diagnosis and treatment plan as listed above, goals of care, and symptom management. Case was discussed with nursing staff,
specialists, and care coordinators/case management. All labs and imaging personally reviewed by me. Remainder the time spent in detailed review of previous records, lab data, imaging, and other medical provider documentation.
Anticipated Discharge: 24 - 48 hours
Subjective/Interval History
-
Date of Service: October 08, 2024
Pt states she's overall starting to feel better. Still feels weak.
Objective Data
-
Labs:
Laboratory Results
10/08/24
06:46
WBC 4.0 L
Hgb 13.2
Hct 37.7
Plt Count 61 L
Sodium Pending
Potassium Pending
Chloride Pending
Carbon Dioxide Pending
BUN Pending
Creatinine Pending
Glucose Pending
Calcium Pending
Vital Signs:
Vital Signs
Temp Pulse Resp BP Pulse Ox
98.3 F 100 18 162/80 95
10/08/24 08:00 10/08/24 08:00 10/08/24 08:00 10/08/24 08:00 10/08/24 08:00
I&O
10/07/24 10/08/24 10/09/24
06:59 06:59 06:59
Intake Total 1680 / 1680 3480 / 3480
Balance 1680 / 1680 3480 / 3480
[2024-10-08 08:42] LABS: Blood Urea Nitrogen 8 mg/dl (7-17); Calcium 7.6 mg/dl (8.4-10.2); Carbon Dioxide 22 mmol/L (22-30); Chloride 103 mmol/L (98-107); Estimated Creatinine Clearance 80 ml/min; Glucose 107 mg/dl (70-99); Potassium 3.1 mmol/L (3.5-5.1); Sodium 131 mmol/L (135-145); eGFR > 60.00
[2024-10-08 08:57] LABS: ALT (SGPT) 42 U/L (0-35); AST (SGOT) 52 U/L (14-36); Albumin 3.5 g/dl (3.5-5.0); Alkaline Phosphatase 55 U/L (38-126); Total Protein 5.7 g/dl (6.3-8.2)
--- NOTE | 2024-10-08 09:20 | CON.ONC ---
Consultation
-
Date Consultation Requested: 10/08/24
Date Consultation Performed: 10/08/24
Performing Provider: Adams Ashley
Impression
Impression
Leukopenia and Thrombocytopenia
- likely due to acute process
Sepsis
- recent camping trip, concern for tickborne illness
- antibiotic recommendations as per ID
- parasite smear negative
- Ehrlichia/Anaplasma PCR pending
Plan
Plan
Leukopenia and Thrombocytopenia likely reactive and related to current infection
Should be self limited and would expected full recovery in 1-2 weeks
Continue to trend WBC and platelets
Hgb stable 13.2
Will continue to follow along
Patient History
History of Present Illness
78 year old female with PMH of proximal atrial fibrillation on anticoagulant with Xarelto, HTN and HLD presenting to the emergency department with 2 days of feeling unwell and a febrile episode. At home over the weekend, patient was feeling
fatigued, weak, had decreased appetite, 3 episodes of diarrhea and fever, highest 101.9. Patient's son encouraged her to come to the ED.
Of note patient recently returned from a camping trip. Does not recall tick exposure, but does recall getting at least several mosquito bites.
In the ED, patient was found to be afebrile with a temp of 98.3, blood pressure was 96/50 and she was tachycardic to 110s, O2 sat 96% on RA. Patient had recently taken Tylenol. Labs were notable for elevated lactic acid 3.2, hgb 17, normal WBCs and
platelets. UA unremarkable. COVID/flu negative.
CT AP revealed no evidence of intestinal obstruction, nephrolithiasis, hydronephrosis, cholecystitis or abscess formation. There is a AAA measuring 4.5 cm. Ulcerated plaque within the aneurysm. No evidence of aneurysmal rupture or leakage.
Ultrasound of abdomen negative.
WBC 5.4 on admission -> 3.0 -> 1.7 -> 4.0 today
Plt 168 on admission -> 123 -> 61 -> 61 today
Given tick exposure, ID consulted and patient switched to doxycycline 100 mg p.o. BID. Parasite smear resulted negative. Ehrlichia/Anaplasma PCR pending.
Hematology consulted for thrombocytopenia and leukopenia.
Patient seen today at the bedside. She is feeling better since admission. She is having an occasional headache, b/l temporal and frontal region. Patient also notes L flank pain, worsening since admission. Patient is eating more and had a normal BM
since admission. Patient denies all other ROS. Patient does note a small mass on her right mandible that she has had for 'years' after 2 root canals. Has been told in the past it is an abcess. PT was encouraged to see an oral surgeon, but did not
follow up.
Past-Medical/Surgical History
Medical
Atrial fibrillation
HLD
AAA
HTN
Osteopenia
Surgical
Bilateral salpingo-oophorectomy
Wrist surgery
Patient Medication
�Medication �Instructions �Recorded �Confirmed �Last Taken �Type
Probiotic 1 tab PO DAILY Supplement 12/27/22 10/06/24 12/27/22 History
cartilage 40 mg-collagen II 10 1 tab PO DAILY Supplement 12/27/22 10/06/24 12/27/22 History
mg-boron 5 mg-hyaluronate 3.3 mg
tablet ([facility])
cinnamon bark 500 mg capsule 1,000 mg PO BID Supplement 12/27/22 10/06/24 12/27/22 History
(Cinnamon)
coenzyme Q10 100 mg capsule (Co 100 mg PO HS Supplement 12/27/22 10/06/24 12/26/22 History
Q-10)
ibandronate 150 mg tablet 150 mg PO MONTHLY Osteoporosis 12/27/22 10/06/24 Unknown History
metoprolol succinate 25 mg 12.5 mg PO DAILY Blood Pressure 12/27/22 10/06/24 Unknown History
tablet,extended release 24 hr
metoprolol succinate 25 mg 25 mg PO HS Blood Pressure 12/27/22 10/06/24 12/27/22 History
tablet,extended release 24 hr
multivitamin with minerals 1 tab PO DAILY Supplement 12/27/22 10/06/24 12/27/22 History
(Hair,Skin and Nails tablet)
omeprazole 20 mg capsule,delayed 20 mg PO HS Gastrointestinal Issue 12/27/22 10/06/24 12/26/22 History
release
rivaroxaban 20 mg tablet (Xarelto) 20 mg PO HS Blood Clot 12/27/22 10/06/24 12/26/22 History
Prevention/Tx
rosuvastatin 10 mg tablet 10 mg PO HS High Cholesterol 12/27/22 10/06/24 12/26/22 History
vit C 250 mg-vit E 90 mg-zinc 40 1 tab PO BID Supplement 12/27/22 10/06/24 12/27/22 History
mg-copper 1 [id number]
capsule ([employer] AREDS-2)
coffee extract 100 mg-phosphatidyl 1 cap PO DAILY Supplement 10/06/24 10/06/24 Unknown History
serine 100 mg capsule ([employer]uriva
Original)
Active Medications
Generic Name Dose Route Start Last Admin
Trade Name Freq PRN Reason Stop Dose Admin
Acetaminophen 650 mg 10/06/24 05:32 10/07/24 21:25
Acetaminophen 325 Mg Tablet PO 11/03/24 05:31 650 mg
Q4HPRN PRN Administration
mild pain/SOTO/temp> 100.4F
Diltiazem HCl 120 mg 10/08/24 09:00
Diltiazem 120 Mg Extended Release (24 H) Capsule PO 11/05/24 08:59
DAILY MARINO
Doxycycline Hyclate 100 mg 10/06/24 20:00 10/08/24 07:55
Doxycycline 100 Mg Capsule PO 100 mg
BID MARINO Administration
Sodium Chloride 1,000 mls @ 100 mls/hr 10/06/24 05:32 10/08/24 08:02
Nss IV 1,000 mls
.Q10H MARINO Administration
Metoprolol Succinate 50 mg 10/08/24 08:00 10/08/24 07:55
Metoprolol 50 Mg Extended Release Tablet PO 11/05/24 07:59 50 mg
DAILY MARINO Administration
Ondansetron HCl 4 mg 10/06/24 05:32
Ondansetron 4 Mg/2 Ml Vial IV 11/03/24 05:31
Q6HPRN PRN
nausea and vomiting
Pantoprazole Sodium 40 mg 10/06/24 22:00 10/07/24 21:17
Pantoprazole 40 Mg Delayed Release Tablet PO 11/03/24 21:59 40 mg
HS MARINO Administration
Potassium Chloride 40 meq 10/08/24 09:00
Potassium Chloride 20 Meq Extended Release Tablet PO 10/08/24 13:01
Q4H MARINO
Rivaroxaban 20 mg 10/06/24 22:00 10/07/24 21:18
Rivaroxaban 20 Mg Tablet PO 11/03/24 21:59 20 mg
HS MARINO Administration
Rosuvastatin Calcium 10 mg 10/06/24 22:00 10/07/24 21:17
Rosuvastatin (Crestor) 10 Mg Tablet PO 11/03/24 21:59 10 mg
HS MARINO Administration
Sodium Chloride 2 sprays 10/06/24 05:32
Sodium Chloride 0.65% Nasal [place] 45 Ml Bottle NASAL 11/03/24 05:31
QIDPRN PRN
nasal congestion
Sodium Chloride 0 flush 10/06/24 06:00
Sodium Chloride 0.9% (Flush) Syringe IV 11/03/24 05:59
PER PROTOCOL MARINO
Review of Systems
-
History Source: Patient
Constitutional: Reports Fever, No Appetite (decreased appetite, but improving) and Fatigue
EENT: Reports Other (R mandibular mass - chronic for years - told it was an abscess )
Respiratory: Reports No Symptoms
Cardiac: Reports No Symptoms
GI: Reports No Symptoms
: Reports No Symptoms
Musculoskeletal: Reports No Symptoms
Skin: Reports No Symptoms
Neuro: Reports Headache
Hematologic/Lymphatic: Reports No Symptoms
Psych: Reports No Symptoms
Physical Exam
-
General: Well Developed, Well Nourished and No Apparent Distress
Cardiology: Irregular Rate/Rhythm
Pulmonary: Clear
GI: Soft
Musculoskeletal: No Edema
Extremities: Pulses Present
Skin: Warm and Dry
Psych: Calm and Intact Judgement/Insight
Labs
Lab Results
WBC 4.0 10^3/uL (4.8-10.8) L 10/08/24 06:46
RBC 4.49 10^6/uL (4.20-5.40) 10/08/24 06:46
Hgb 13.2 g/dL (12.0-16.0) 10/08/24 06:46
Hct 37.7 % (37.0-47.0) 10/08/24 06:46
MCV 84.0 fL (81.0-99.0) 10/08/24 06:46
MCH 29.4 pg (27.0-31.0) 10/08/24 06:46
MCHC 35.0 g/dL (33.0-37.0) 10/08/24 06:46
RDW 13.1 % (11.5-14.5) 10/08/24 06:46
Plt Count 61 10^3/uL (130-400) L 10/08/24 06:46
MPV 12.3 fL (7.4-10.4) H 10/08/24 06:46
Abs Immat Gran (auto) 0.0 10^3/uL (0-0.05) 10/05/24 21:47
Absolute Neuts (auto) 4.5 10^3/uL (1.4-6.5) 10/05/24 21:47
Absolute Lymphs (auto) 0.5 10^3/uL (1.2-3.4) L 10/05/24 21:47
Absolute Monos (auto) 0.3 10^3/uL (0.1-0.6) 10/05/24 21:47
Absolute Eos (auto) 0.0 10^3/uL (0-0.7) 10/05/24 21:47
Absolute Basos (auto) 0.0 10^3/uL (0-0.2) 10/05/24 21:47
Immature Gran % 0.6 % (0-0.5) H 10/05/24 21:47
Neutrophils % 83.9 % (42.2-75.2) H 10/05/24 21:47
Lymphocytes % 9.3 % (20.5-51.1) L 10/05/24 21:47
Monocytes % 5.6 % (1.7-9.3) 10/05/24 21:47
Eosinophils % 0.0 % (0-6) 10/05/24 21:47
Basophils % 0.6 % (0-2) 10/05/24 21:47
Creatinine 0.5 mg/dL (0.6-1.0) L 10/08/24 06:46
Vital Signs
Vital Signs
Temp Pulse Resp BP Pulse Ox
98.3 F 100 18 162/80 95
10/08/24 08:00 10/08/24 08:00 10/08/24 08:00 10/08/24 08:00 10/08/24 08:00
[2024-10-08] MEDS: CARDIZEM CD 120 MG PO (09:52)
[2024-10-08] MEDS: KCL 40 MEQ PO ×2 (09:56→13:30)
--- NOTE | 2024-10-08 10:51 | CON.CAR ---
Addendum entered and electronically signed by Cornelio Arellano MD 10/08/24 15:37:
I saw and examined the patient.
The Patient Liaison's note was reviewed and I agree with the note.
Comment:
GEN: No distress, awake, Ox3
HEENT: supple, anicteric, mmm
LUNGS: CTA, no wheezes/rales
CV: Irreg, S1/S2, 1/6 syst LSB, no gallop
ABD: soft, BS+, NT/ND
EXT: No edema
NEURO: Gross non-focal
SKIN: No rash
Plan:
78-year-old female with past medical history of paroxysmal atrial fibrillation, borderline diabetes who presents to [facility] with sepsis, febrile illness and possible tickborne illness. She has a known history of paroxysmal atrial
fibrillation on Xarelto followed by Dr. Miranda. About 4 days ago she felt palpitations and felt like she went back into atrial fibrillation. She denies any chest pains or shortness of breath. She did miss 1 dose of Xarelto.
She remains in rate controlled atrial fibrillation. Continue Toprol 50 mg daily and diltiazem 120 mg daily.
Check echocardiogram. Would pursue a rate control strategy for now with her febrile illness. Continue doxycycline.
Will continue Xarelto 20 mg daily.
Original Note:
Consultation
Consultation Request
Date/Time Consultation Performed: 10/08/24
Requesting Provider: Dr. Lozano
Performing Provider: Khloe Em PA-C for Dr. Arellano
Reason for Consultation: afib
Medical History
-
Chief Complaint: febrile illness
History of Present Illness:
Patient is a 78-year-old female with past medical history of paroxysmal atrial fibrillation maintained on chronic Toprol and Xarelto, prediabetes, vitamin D insufficiency/osteoporosis who presented to [facility] due to febrile illness and evidence of
sepsis on arrival. There is concern for a possible tickborne illness as she was recently camping 09/26-13. On 10/04 noted to develop fever/chills. In setting of this noted to be in A-fib with RVR resulting in cardiology consultation. She reports she
has history of PAF for approximately 8 years, followed by Dr. Alla Miranda at [place]. She states she has never required cardioversion, AAD, or ablation. She reports she can tell when she is in afib due to 'thumping sensation' in her chest. She feels she
went into afib on 10/04 and has remained in afib since that time. Denies CP, SOB. She did miss one dose of xarelto on 10/04 due to feeling so poorly she could not get out of bed.
PMH:
PAF
chronic OAC with xarelto
Prediabetes
Osteoporosis
Former smoker
Past Medical History
Past Medical History: Other (in HPI)
Social History
Tobacco: Former Smoker
Alcohol: None
Employment: Retired
Allergies / Home Medications
Allergy/AdvReac Type Severity Reaction Status Date / Time
codeine Allergy Nausea / Verified 10/06/24 00:17
Vomiting
meperidine (From Demerol) Allergy Nausea / Verified 10/06/24 00:17
Vomiting
�Medication �Instructions �Recorded �Confirmed �Type
Probiotic 1 tab PO DAILY Supplement 12/27/22 10/06/24 History
cartilage 40 mg-collagen II 10 1 tab PO DAILY Supplement 12/27/22 10/06/24 History
mg-boron 5 mg-hyaluronate 3.3 mg
tablet ([employer])
cinnamon bark 500 mg capsule 1,000 mg PO BID Supplement 12/27/22 10/06/24 History
(Cinnamon)
coenzyme Q10 100 mg capsule (Co 100 mg PO HS Supplement 12/27/22 10/06/24 History
Q-10)
ibandronate 150 mg tablet 150 mg PO MONTHLY Osteoporosis 12/27/22 10/06/24 History
metoprolol succinate 25 mg 12.5 mg PO DAILY Blood Pressure 12/27/22 10/06/24 History
tablet,extended release 24 hr
metoprolol succinate 25 mg 25 mg PO HS Blood Pressure 12/27/22 10/06/24 History
tablet,extended release 24 hr
multivitamin with minerals 1 tab PO DAILY Supplement 12/27/22 10/06/24 History
(Hair,Skin and Nails tablet)
omeprazole 20 mg capsule,delayed 20 mg PO HS Gastrointestinal Issue 12/27/22 10/06/24 History
release
rivaroxaban 20 mg tablet (Xarelto) 20 mg PO HS Blood Clot 12/27/22 10/06/24 History
Prevention/Tx
rosuvastatin 10 mg tablet 10 mg PO HS High Cholesterol 12/27/22 10/06/24 History
vit C 250 mg-vit E 90 mg-zinc 40 1 tab PO BID Supplement 12/27/22 10/06/24 History
mg-copper 1 [id number]
capsule (PreserVision AREDS-2)
coffee extract 100 mg-phosphatidyl 1 cap PO DAILY Supplement 10/06/24 10/06/24 History
serine 100 mg capsule (Neuriva
Original)
Review of Systems
-
History Source: Patient
All other systems: Negative unless noted
Physical Exam
Vital Signs
Temp Pulse Resp BP Pulse Ox
98.3 F 91 18 139/78 95
10/08/24 08:00 10/08/24 09:52 10/08/24 08:00 10/08/24 09:52 10/08/24 08:00
Lab Results
10/08/24 06:46
10/08/24 06:46
Troponin I 0.025 ng/ml 10/06/24 00:34
Physical Exam
General: No Apparent Distress and Comfortable
HEENT: Normocephalic, Anicteric and Moist Mucous Membranes
Respiratory: Clear and Non Labored Respirations
Cardiac: S1/S2 and Irregular Rhythm
GI: Soft, Non Tender, Non Distended and Normal Bowel Sounds
Musculoskeletal: No Clubbing, No Cyanosis and No Edema
Skin: Warm and Dry
Neuro: AO x 3
Impression / Plan
-
PCP: Mercedez SHAIKH
Primary Network Systems Analyst: Dr. Alla [facility] of [facility]
Assessment:
Fever/chills
Sepsis, concern for tickborne illness
Afib with RVR
Hypokalemia
Thrombocytopenia
PAF, symptomatic
chronic OAC with xarelto
Prediabetes
Osteoporosis
Former smoker
AAA by CTAP
Lung nodule
ECHO 10/08/24: pending
Plan:
- Patient presented with febrile illness, and evidence of sepsis with concern for tickborne etiology due to recent camping trip. ID following. On doxycycline
- In setting of above, went into afib with RVR patient believes this past Wednesday 10/04, and unlike prior afib episodes, has remained in afib since then. She relays in past all A-fib episodes have been 12 hours or less
-Heart rates appear improved today on review of telemetry. As an outpatient she notes being on a regimen of Toprol 12.5 mg every morning with 25 mg every afternoon. She is currently on Toprol 50 mg daily and Cardizem CD 120 mg daily
- Continue Xarelto. Hematology evaluating thrombocytopenia, felt to be secondary to acute illness. Missed 1 dose on 10/04 due to feeling poorly
- echo pending
- no CP or evidence of acute CHF. arrival EKG afib with RVR with NSSTS
- replete K
- will need OP follow up of AAA noted by CT imaging, report reviewed by me
- she is scheduled for follow up appt with Dr. Miranda's VER[employer] WRITER in November
- d/w nursing
Data Reviewed
-
EKG: Tracing Personally Visualized and interpreted
Radiology: Report Reviewed by me
CT Scan: Report Reviewed by me
Labs: Labs Reviewed by me
Old Records: Reviewed
--- NOTE | 2024-10-08 11:17 | W.PN.ID1 ---
Date of Service
Date of Service: October 08, 2024
Today's Communication
Continue antibiotics.
Assessment / Plan
Fever and malaise
Recent camping trip
Leukopenia; improved
Thrombocytopenia; persists
Lactic acidosis
Atrial fibrillation
HLD
AAA
HTN
Osteopenia
Recommendations:
Given exposure history, tickborne illness is high in the differential.
Ehrlichia and Anaplasma PCR pending. Blood parasite smear negative
Continue doxycycline 100 mg p.o. q.12 hours to complete a 14-day course.
Monitor temperature curve.
Follow white count, platelet count
Await further testing results.
����������������������������������������������������������
Chief Complaint
-: Fever
Subjective / Review of Systems
Review of Systems: No Fever, No Chills, No Abdominal Pain and No Nausea
Vital Signs / Physical Exam
Vital Signs
Vital Signs
Temp Pulse Resp BP Pulse Ox
98.3 F 91 18 139/78 95
10/08/24 08:00 10/08/24 09:52 10/08/24 08:00 10/08/24 09:52 10/08/24 08:00
Physical Exam
Constitutional: No Acute Distress, Comfortable and Non-toxic
Eyes: No Conjunctival Hemorrhage and Sclera Anicteric
Cardiovascular: S1/S2; Negative S3/S4
Pulmonary: Non Labored
Gastrointestinal: Soft, Non Tender and Non Distended
Skin: Negative Rash or Jaundice
Neurological: Awake and Alert
Psychological: Calm
Objective Data
Lab Data
Lab Results
10/08/24 06:46
10/08/24 06:46
Estimated Creat Clear 80 ml/min 10/08/24 06:46
Lactic Acid 2.2 mmol/L (0.7-2.0) H 10/06/24 05:50
Total Bilirubin Cancelled 10/08/24 08:34
AST Cancelled 10/08/24 08:34
ALT Cancelled 10/08/24 08:34
Alkaline Phosphatase Cancelled 10/08/24 08:34
Most recent labs reviewed.
Micro Results:
10/06/24 03:13 Blood Culture - Preliminary
Blood/Venous No Growth in 48 hours- Final report to follow
10/06/24 03:11 Blood Culture - Preliminary
Blood/Venous No Growth in 48 hours- Final report to follow
10/07/24 06:19 Blood Parasites Smear - Final
Blood/Venous
10/05/24 21:47 Influenza Types A & B (JANINE) - Final
Nasal Swab Negative for Influenza A & B, NAAT
Negative results must be combined with clinical observations
and patient history.
Nucleic Acid Amplification test (NAAT)performed on the
[employer] platform.
Imaging:
10/06/2024 CT abdomen/pelvis with IV contrast: no evidence of intestinal obstruction, nephrolithiasis, hydronephrosis, cholecystitis or abscess formation. There is a AAA measuring 4.5 cm. Ulcerated plaque within the aneurysm. No evidence of
aneurysmal rupture or leakage. Please see full dictation for additional detail.
[2024-10-08 11:50] VITALS: BP 121/81
[2024-10-08 15:42] VITALS: BP 125/79
--- NOTE | 2024-10-08 16:44 | CM ---
Maintained on IV antibiotics.
Spoke with patient in room .
She said family will drive her home at [place].
Offered VN she declined need.
PLAN Home no need
[2024-10-08 19:24] VITALS: BP 106/73
[2024-10-08] MEDS: CRESTOR 10 MG PO (21:14)
[2024-10-08] MEDS: XARELTO 20 MG PO (21:14)
[2024-10-08] MEDS: PROTONIX 40 MG PO (21:14)
[2024-10-08 23:28] VITALS: BP 103/47
[2024-10-09 03:21] VITALS: BP 139/67
[2024-10-09 07:13] LABS: Hematocrit 37.4 % (37.0-47.0); Hemoglobin 12.8 g/dL (12.0-16.0); Mean Corp Hgb Conc. 34.2 g/dL (33.0-37.0); Mean Corpuscular Volume 84.8 fL (81.0-99.0); Platelet Count 87 10^3/uL (130-400); Red Cell Dist. Width 13.2 % (11.5-14.5)
[2024-10-09] MEDS: CARDIZEM CD 120 MG PO (07:30)
[2024-10-09] MEDS: VIBRAMYCIN 100 MG PO (07:30)
[2024-10-09] MEDS: TOPROL XL 50 MG PO (07:30)
[2024-10-09 07:39] VITALS: BP 128/67
[2024-10-09 07:40] LABS: Blood Urea Nitrogen 10 mg/dl (7-17); Calcium 8.1 mg/dl (8.4-10.2); Carbon Dioxide 25 mmol/L (22-30); Chloride 103 mmol/L (98-107); Estimated Creatinine Clearance 80 ml/min; Glucose 107 mg/dl (70-99); Potassium 4.1 mmol/L (3.5-5.1); Sodium 132 mmol/L (135-145); eGFR > 60.00
--- NOTE | 2024-10-09 09:20 | W.PN.ONC ---
Today's Communication / Plan
-
Leukopenia resolved WBC 5.3 today
Thrombocytopenia likely reactive and related to current infection
Should be self limited and would expected full recovery in 1-2 weeks
Continue to trend platelets while admitted
Hgb stable 12.8
Impression
Impression
Leukopenia and Thrombocytopenia
- likely due to acute process, improving
- WBC 5.3
- plt 87
Sepsis
- recent camping trip, concern for tickborne illness
- antibiotic recommendations as per ID
- parasite smear negative
- Ehrlichia/Anaplasma PCR pending
Plan
Plan
Leukopenia resolved WBC 5.3 today
Thrombocytopenia likely reactive and related to current infection
Should be self limited and would expected full recovery in 1-2 weeks
Continue to trend platelets while admitted
Hgb stable 12.8
Subjective/Objective
Subjective/Objective
Patient seen at the bedside today. Patient is feeling much better and was enjoyoing her breakfast this morning. Patient states that her appetite has returned. Patient denies all ROS other than occasional chronic cramping in her legs which she has
gotten since starting her statin.
Physical Exam:
General: not in acute distress
Cardiovascular: Irreg, S1/S2
Respiratory: normal breath sounds
Abdominal: soft, non-tender
Vital Signs:
Vital Signs
Temp Pulse Resp BP Pulse Ox
98.8 F 86 16 128/67 94
10/09/24 07:39 10/09/24 07:39 10/09/24 07:39 10/09/24 07:39 10/09/24 07:39
Lab Results:
Laboratory Data
WBC 5.3 10^3/uL (4.8-10.8) 10/09/24 06:48
Hgb 12.8 g/dL (12.0-16.0) 10/09/24 06:48
Plt Count 87 10^3/uL (130-400) L D 10/09/24 06:48
eGFR > 60.00 10/09/24 06:48
--- NOTE | 2024-10-09 10:28 | W.PN.HOSP.TC ---
Addendum entered and electronically signed by Mack Lozano MD 10/09/24 13:01:
Total time spent on d/c = 35 min. This included today's physical exam, progress note, review of laboratory and diagnostic data, preparation of discharge documents and prescriptions, and discussions about the pt's hospital course and discharge plan
with the patient and other director medical affairs involved in the patient's care.
Original Note:
Today's Communication/Plan
-
d/c
Assessment / Plan
Assessment / Plan
Gen: NAD, AAOx3.
Eyes: EOMI, PERRLA, no scleral icterus.
Neck: supple.
CV: irreg/irreg, +S1/S2, no m/r/g.
Resp: remains CTAB anteriorly, no rales, wheezes, or rhonchi.
Abd: continues to remain +BS, soft, NT, ND
Skin: No rashes.
Neuro: CN 2-12 intact, non-focal.
Psych: Normal mood and affect.
10/06/24 03:13 Blood/Venous Blood Culture - Preliminary
No Growth in 72 hours- Final report to follow
10/06/24 03:11 Blood/Venous Blood Culture - Preliminary
No Growth in 72 hours- Final report to follow
10/07/24 06:19 Blood/Venous Blood Parasites Smear - Final
10/05/24 21:47 Nasal Swab Influenza Types A & B (JANINE) - Final
Negative for Influenza A & B, NAAT
Negative results must be combined with clinical observations
and patient history.
Nucleic Acid Amplification test (NAAT)performed on the
[employer] platform.
CT A/P:
1. No evidence of intestinal obstruction, nephrolithiasis, hydronephrosis, cholecystitis, or abscess formation.
2. Abdominal aortic aneurysm, measuring 4.5 cm in greatest orthogonal dimension. Ulcerated plaque within the aneurysm. No evidence of aneurysm rupture or leakage.
3. 4 mm lung nodule at the right lung base. As per Fleischner Society recommendations, no further CT follow-up is required unless the patient is high risk for lung carcinoma, in which case a follow-up chest CT should be considered in approximately
12 months.
Abd U/S: Unremarkable abdominal ultrasound.
Echo: Normal left ventricular chamber size. Normal left ventricular systolic
function. Left ventricular ejection fraction is 53-55% by volumetric
assessment. Normal regional wall motion. Normal left ventricular wall
thickness. Diastolic function indeterminate due to atrial fibrillation.
Normal right ventricular size and function.
Mild mitral annular calcification. Mild mitral regurgitation.
Trace tricuspid regurgitation. Estimated pulmonary artery pressure of 25-30
mmHg assuming a right atrial pressure of 3 mmHg.
No prior study available for comparison.
Sepsis:
-recent camping trip, concern for tickborne illness
-ID following
-parasite smear NEG
-Ehrlichia/Anaplasma PCR pending
-culture data above, NGTD
-cont Doxy to complete 14 days, discussed with ID
Afib with RVR:
-initially thought to be due to sepsis and hypovolemia
-s/p IVFs
-cont Xarelto
-Toprol XL increased to 50mg daily
-Cardizem CD 120mg daily started 10/08/24
-echo above
-cards following, Dr. Garza has cleared the pt for discharge.
Other problems:
Hyponatremia, mild
Hypokalemia, resolved
Obesity due to excess calories
Leukopenia and thrombocytopenia likely due to acute process, suspect consumptive, appreciate heme, WBC now normal
FULL/Xarelto
Total time spent on d/c = 33 min. This included today's physical exam, progress note, review of laboratory and diagnostic data, preparation of discharge documents and prescriptions, and discussions about the pt's hospital course and discharge plan
with the patient and other director medical affairs involved in the patient's care.
Anticipated Discharge: Today
Subjective/Interval History
-
Date of Service: October 09, 2024
No new complaints.
Objective Data
-
Labs:
Laboratory Results
10/09/24
06:48
WBC 5.3
Hgb 12.8
Hct 37.4
Plt Count 87 L D
Sodium 132 L
Potassium 4.1 D
Chloride 103
Carbon Dioxide 25
BUN 10
Creatinine 0.6
Glucose 107 H
Calcium 8.1 L
Vital Signs:
Vital Signs
Temp Pulse Resp BP Pulse Ox
98.8 F 86 16 128/67 94
10/09/24 07:39 10/09/24 07:39 10/09/24 07:39 10/09/24 07:39 10/09/24 07:39
I&O
10/08/24 10/09/24 10/10/24
06:59 06:59 06:59
Intake Total 3480 / 3480 1959
Balance 3480 / 3480 1959
--- NOTE | 2024-10-09 10:58 | W.PN.CARDCBS ---
Addendum entered and electronically signed by Miguel Barney DO 10/09/24 11:31:
I saw and examined the patient.
The Slip Seat Coverer's note was reviewed and I agree with the note.
Comment:
Plan:
Continue rate control for AFib
Cont Toprol
Cont Xarelto
Stable for d/c with follow up with her outpt chimney mechanic.
Discussed with primary service.
Original Note:
Today's Communication / Plan
-
continue toprol 50mg daily and cardizem cd 120mg daily
continue xarelto
OP follow up with [facility] as scheduled, may transition to [facility] moving forward
ok for DC
Impression / Plan
-
PCP: Mercedez SHAIKH
Primary Technology Applications Teacher: Dr. Alla Miranda of [facility]
Assessment:
Fever/chills
Sepsis, concern for tickborne illness
Afib with RVR
Hypokalemia
Thrombocytopenia
PAF, symptomatic
chronic OAC with xarelto
Prediabetes
Osteoporosis
Former smoker
AAA by CTAP
Lung nodule
ECHO 10/08/24: EF 53 to 55%, mild MAC, mild MR, trace TR, PAP 25 to 30 mmHg
Plan:
- Patient presented with febrile illness, and evidence of sepsis with concern for tickborne etiology due to recent camping trip. ID following. On doxycycline
- In setting of above, went into afib with RVR patient believes this past Wednesday 10/04, and unlike prior afib episodes, has remained in afib since then. She relays in past all A-fib episodes have been 12 hours or less
- Remains in A-fib, however heart rates controlled on review of telemetry overnight on regimen of Toprol 50 mg daily and Cardizem CD 120 mg daily. Prior to admission she was on Toprol 12.5 mg every morning with 25 mg every afternoon
- Continue Xarelto. Platelets improving, hematology suspects secondary to acute illness and should improve over next several weeks
- Echo with results as above
- will need OP follow up of AAA noted by CT imaging, report reviewed by me
- she is scheduled for follow up appt with Dr. Miranda's [employer] in November. She also relays due to her living close to [facility], that she may transition her care to [facility]. Will provide her with our information as well
- Okay for discharge to home today
- d/w nursing
Progress Note - Technology Applications Teacher
Subjective
Date of Service: October 09, 2024
Feeling well. Eager for discharge
Objective
Labs:
10/09/24 06:48
10/09/24 06:48
Labs
Hgb 12.8 g/dL (12.0-16.0) 10/09/24 06:48
Hct 37.4 % (37.0-47.0) 10/09/24 06:48
Plt Count 87 10^3/uL (130-400) L D 10/09/24 06:48
Sodium 132 mmol/L (135-145) L 10/09/24 06:48
Potassium 4.1 mmol/L (3.5-5.1) D 10/09/24 06:48
BUN 10 mg/dl (7-17) 10/09/24 06:48
Creatinine 0.6 mg/dL (0.6-1.0) 10/09/24 06:48
Glucose 107 mg/dl (70-99) H 10/09/24 06:48
Vital Signs and I&O:
Vital Signs
Temp Pulse Resp BP Pulse Ox
98.8 F 86 16 128/67 94
10/09/24 07:39 10/09/24 07:39 10/09/24 07:39 10/09/24 07:39 10/09/24 07:39
Vital Signs
Temp Pulse Resp BP Pulse Ox
98.8 F 86 16 128/67 94
10/09/24 07:39 10/09/24 07:39 10/09/24 07:39 10/09/24 07:39 10/09/24 07:39
Intake & Output
10/07/24 10/08/24 10/09/24 10/10/24
07:59 07:59 07:59 07:59
Intake Total 1680 / 1680 0 / 3480 1959
Balance 1680 / 1680 3480 / 3480 1959
Physical Exam
Physical Exam
GEN: No distress, awake, alert, oriented x3
HEENT: supple, anicteric, mmm, eomi
LUNGS: CTA B/L, no wheezes/rales
CV: Irreg, S1/S2, no murmur
ABD: soft, BS+, NT/ND
EXT: No cyanosis, clubbing, edema
NEURO: Gross non-focal
SKIN: Warm, pink, dry. No rash
[2024-10-09 11:43] VITALS: BP 94/58
--- NOTE | 2024-10-09 12:33 | CM ---
Patient seen bedside.
Per patient d/c anticipated today.
Daughter in law will transport.
Patient denies HomeCare needs.
IMM completed.
Plan: home no needs.
--- NOTE | 2024-10-09 13:41 | W.PN.ID1 ---
Date of Service
Date of Service: October 09, 2024
Today's Communication
Continue current course of doxycycline.
Assessment / Plan
Fever and malaise
Recent camping trip
Leukopenia; improved
Thrombocytopenia; persists
Lactic acidosis
Atrial fibrillation
HLD
AAA
HTN
Osteopenia
Recommendations:
Given exposure history, tickborne illness is high in the differential.
Ehrlichia and Anaplasma PCR pending. Blood parasite smear negative
Continue doxycycline 100 mg p.o. q.12 hours to complete a 14-day course.
Patient counseled on tick avoidance measures, including the use of DEET insect repellent, along with permethrin clothing treatment when outside.
����������������������������������������������������������
Chief Complaint
-: Fever
Subjective / Review of Systems
No fevers or chills. Patient overall feeling improved.
Vital Signs / Physical Exam
Vital Signs
Vital Signs
Temp Pulse Resp BP Pulse Ox
98.1 F 73 16 94/58 97
10/09/24 11:43 10/09/24 11:43 10/09/24 11:43 10/09/24 11:43 10/09/24 11:43
Physical Exam
Constitutional: No Acute Distress, Comfortable and Non-toxic
Eyes: No Conjunctival Hemorrhage and Sclera Anicteric
Cardiovascular: S1/S2; Negative S3/S4
Pulmonary: Non Labored
Gastrointestinal: Soft, Non Tender and Non Distended
Skin: Negative Rash or Jaundice
Neurological: Awake and Alert
Psychological: Calm
Objective Data
Lab Data
Lab Results
10/09/24 06:48
10/09/24 06:48
Estimated Creat Clear 80 ml/min 10/09/24 06:48
Lactic Acid 2.2 mmol/L (0.7-2.0) H 10/06/24 05:50
Total Bilirubin Cancelled 10/08/24 08:34
AST Cancelled 10/08/24 08:34
ALT Cancelled 10/08/24 08:34
Alkaline Phosphatase Cancelled 10/08/24 08:34
Most recent labs reviewed.
Micro Results:
10/06/24 03:13 Blood Culture - Preliminary
Blood/Venous No Growth in 72 hours- Final report to follow
10/06/24 03:11 Blood Culture - Preliminary
Blood/Venous No Growth in 72 hours- Final report to follow
10/07/24 06:19 Blood Parasites Smear - Final
Blood/Venous
10/05/24 21:47 Influenza Types A & B (JANINE) - Final
Nasal Swab Negative for Influenza A & B, NAAT
Negative results must be combined with clinical observations
and patient history.
Nucleic Acid Amplification test (NAAT)performed on the
[employer] platform.
Imaging:
10/06/2024 CT abdomen/pelvis with IV contrast: no evidence of intestinal obstruction, nephrolithiasis, hydronephrosis, cholecystitis or abscess formation. There is a AAA measuring 4.5 cm. Ulcerated plaque within the aneurysm. No evidence of
aneurysmal rupture or leakage. Please see full dictation for additional detail.
Care Review
Plan reviewed with: Physician (Hospitalist)
--- NOTE | 2024-10-09 15:38 | W.DCSUMMARY ---
Discharge Summary
Discharge Data
Date of Admission: 10/06/24
Date of Discharge: 10/09/24
-
Pending Results: Yes
Additional Pending Results:
Ehrlichia and Anaplasma testing
Hospital Course
Primary diagnoses:
Atrial fibrillation with rapid ventricular response
Sepsis due to likely tickborne illness
Secondary diagnoses:
Hyponatremia
Hypokalemia
Obesity due to excess calories
Leukopenia
Thrombocytopenia
Consultants:
Infectious disease
Cardiology
Hematology
Imaging:
CT A/P:
1. No evidence of intestinal obstruction, nephrolithiasis, hydronephrosis, cholecystitis, or abscess formation.
2. Abdominal aortic aneurysm, measuring 4.5 cm in greatest orthogonal dimension. Ulcerated plaque within the aneurysm. No evidence of aneurysm rupture or leakage.
3. 4 mm lung nodule at the right lung base. As per Fleischner Society recommendations, no further CT follow-up is required unless the patient is high risk for lung carcinoma, in which case a follow-up chest CT should be considered in approximately
12 months.
Abd U/S: Unremarkable abdominal ultrasound.
Echo: Normal left ventricular chamber size. Normal left ventricular systolic
function. Left ventricular ejection fraction is 53-55% by volumetric
assessment. Normal regional wall motion. Normal left ventricular wall
thickness. Diastolic function indeterminate due to atrial fibrillation.
Normal right ventricular size and function.
Mild mitral annular calcification. Mild mitral regurgitation.
Trace tricuspid regurgitation. Estimated pulmonary artery pressure of 25-30
mmHg assuming a right atrial pressure of 3 mmHg.
No prior study available for comparison.
78-year-old female presented with a chief complaint of fevers outlined in the H&P done on admission. Hospital course by problem was:
Sepsis: The patient had a recent camping trip and there was concern for tickborne illness. She was seen in consultation by infectious disease. Her blood parasite smear was negative. Ehrlichia/Anaplasma PCR pending at the time of discharge. Blood
cultures, Flu/COVID NEG. She was placed on empiric doxycycline and will complete 14 days.
Afib with RVR: The patient's rapid ventricular response was initially thought to be due to sepsis and hypovolemia. The patient was hydrated with IV fluids. Her Xarelto was continued. Her Toprol XL was increased to 50mg daily. She was started on
Cardizem CD 120mg daily. Echo above. Patient was seen in consultation by cardiology and Dr. Garza cleared the patient for discharge.
Discharge Plan
-
Patient Disposition: Home (Routine Discharge)
Discharge Diagnosis/Procedures: Atrial fibrillation with rapid ventricular response, likely tickborne illness
Condition: Good
Diet: Low Cholesterol and 2 Gram Sodium
Activity: As tolerated
Driving Restrictions: As prior to admission
Blood Work: CBC and BMP in 1 week, prescription from PCP
Referrals:
Khloe Em PA-C [Specified Professional Personl, Cardiology]
Referral Note: If you opt to transfer care to [facility].
Mercedez Olson CRNP [Family Provider, Family Practice] - in less than 1 week
Alla Miranda MD [Non-Admitting Privileges]
Referral Note: follow up as scheduled in November
Prescriptions:
New
doxycycline hyclate 100 mg Capsule
100 mg PO BID Qty: 24 0RF
metoprolol succinate 50 mg Tablet Extended Release 24 Hr
50 mg PO DAILY Qty: 30 0RF
diltiazem HCl 120 mg Capsule,Extended Release 24hr
120 mg PO DAILY Qty: 30 0RF
Continued
Hair,Skin and Nails Tablet
1 tab PO DAILY
coenzyme Q10 [Co Q-10] 100 mg Capsule
100 mg PO HS
rosuvastatin 10 mg tablet
10 mg PO HS
Xarelto 20 mg tablet
20 mg PO HS
PreserVision AREDS-2 250-90-40-1 mg Capsule
1 tab PO BID
BoostUp 40-10-5-3.3 mg Tablet
1 tab PO DAILY
Probiotic
1 tab PO DAILY
omeprazole 20 mg capsule,delayed release(DR/EC)
20 mg PO HS
ibandronate 150 mg tablet
150 mg PO MONTHLY
Neuriva Original 100-100 mg Capsule
1 cap PO DAILY
Discontinued
metoprolol succinate 25 mg tablet extended release 24 hr
25 mg PO HS
metoprolol succinate 25 mg tablet extended release 24 hr
12.5 mg PO DAILY
cinnamon bark [Cinnamon] 500 mg Capsule
1,000 mg PO BID
Discharge Orders:
Discharge Patient (As Directed); Ordered 10/09/24
Ordered By: Mack Lozano
Discharge Date and Time
Discharge Date/Time: 10/09/24 15:26
Print Language: LATVIAN
== END 2024-10-09 15:26 | disposition home or self-care (01) | DRG 872 ==
LOC: 4 EAST ACU 04:11
PROVIDERS: Emergency Medicine; ADMITTING PHYSICIAN Internal Medicine; ATTENDING PHYSICIAN Internal Medicine; CONSULT PHYSICIAN Internal Medicine Cardiovascular Disease; CONSULT PHYSICIAN Internal Medicine Hematology & Oncology; CONSULT PHYSICIAN Internal Medicine Infectious Disease; EMERGENCY PHYSICIAN Emergency Medicine; FAMILY PHYSICIAN Nurse Practitioner Family
DX: A41.9 Sepsis, unspecified organism (principal); E87.1 Hypo-osmolality and hyponatremia; E87.20 Acidosis, unspecified; I48.0 Paroxysmal atrial fibrillation; W57.XXXA Bitten or stung by nonvenomous insect and other nonvenomous arthropods, initial encounter; E87.6 Hypokalemia; E66.09 Other obesity due to excess calories; D72.819 Decreased white blood cell count, unspecified; D69.6 Thrombocytopenia, unspecified; I10 Essential (primary) hypertension; I71.40 Abdominal aortic aneurysm, without rupture, unspecified; Z87.891 Personal history of nicotine dependence; Z88.5 Allergy status to narcotic agent; E86.1 Hypovolemia; Z79.01 Long term (current) use of anticoagulants; E78.00 Pure hypercholesterolemia, unspecified; E86.0 Dehydration; M81.0 Age-related osteoporosis without current pathological fracture; R73.03 Prediabetes; Z79.899 Other long term (current) drug therapy; Z11.52 Encounter for screening for COVID-19
CPT/HCPCS: 74177; 76700; 80048; 80053; 81003; 81015; 82248; 83605; 83690; 84484; 85025; 85027; 87015; 87040; 87207; 87468; 87484; 87502; 87798; 87811; 93005; 93306; 96361; 96374; 99285; Q9967

== ENCOUNTER → 2024-10-14 08:56 | Outpatient (REF) | payer MEDICARE, BC, SELFPAY ==
[2024-10-14 09:57] LABS: Hematocrit 36.5 % (37.0-47.0); Hemoglobin 12.1 g/dL (12.0-16.0); Mean Corp Hgb Conc. 33.2 g/dL (33.0-37.0); Mean Corpuscular Volume 88.6 fL (81.0-99.0); Nucleated Red Blood Cells % 0 %; Platelet Count 326 10^3/uL (130-400); Red Cell Dist. Width 13.5 % (11.5-14.5)
[2024-10-14 10:34] LABS: ALT (SGPT) 59 U/L (0-35); AST (SGOT) 40 U/L (14-36); Albumin 3.7 g/dl (3.5-5.0); Alkaline Phosphatase 67 U/L (38-126); Blood Urea Nitrogen 15 mg/dl (7-17); Calcium 8.6 mg/dl (8.4-10.2); Carbon Dioxide 28 mmol/L (22-30); Chloride 110 mmol/L (98-107); Glucose 99 mg/dl (70-99); Potassium 4.4 mmol/L (3.5-5.1); Sodium 141 mmol/L (135-145); Total Protein 6.0 g/dl (6.3-8.2); eGFR > 60.00
== END ==
LOC: REG 08:56
PROVIDERS: ATTENDING PHYSICIAN Nurse Practitioner Family
DX: I48.0 Paroxysmal atrial fibrillation (principal); E87.1 Hypo-osmolality and hyponatremia; E87.6 Hypokalemia; D72.819 Decreased white blood cell count, unspecified
CPT/HCPCS: 36415; 80053; 85025

== ENCOUNTER → 2024-11-04 10:09 | Outpatient (REF) | payer MEDICARE, BC, SELFPAY ==
[2024-11-04 10:47] LABS: Hematocrit 40.8 % (37.0-47.0); Hemoglobin 13.6 g/dL (12.0-16.0); Mean Corp Hgb Conc. 33.3 g/dL (33.0-37.0); Mean Corpuscular Volume 87.6 fL (81.0-99.0); Nucleated Red Blood Cells % 0 %; Platelet Count 208 10^3/uL (130-400); Red Cell Dist. Width 13.3 % (11.5-14.5)
[2024-11-04 11:18] LABS: ALT (SGPT) 28 U/L (0-35); AST (SGOT) 26 U/L (14-36); Albumin 4.4 g/dl (3.5-5.0); Alkaline Phosphatase 60 U/L (38-126); Blood Urea Nitrogen 14 mg/dl (7-17); Calcium 9.5 mg/dl (8.4-10.2); Carbon Dioxide 24 mmol/L (22-30); Chloride 107 mmol/L (98-107); Glucose 102 mg/dl (70-99); Potassium 4.7 mmol/L (3.5-5.1); Sodium 139 mmol/L (135-145); Total Protein 7.1 g/dl (6.3-8.2); eGFR > 60.00
== END ==
LOC: REG 10:09
PROVIDERS: ATTENDING PHYSICIAN Physician Assistant Medical; FAMILY PHYSICIAN Nurse Practitioner Family
DX: Z09 Encounter for follow-up examination after completed treatment for conditions other than malignant neoplasm (principal); H53.2 Diplopia
CPT/HCPCS: 36415; 80053; 85025